=== PATIENT | female | born 1955 | race Caucasian/White ===

== ENCOUNTER 2018-07-25 17:34 | Outpatient (CLI) | payer OTHER | END 2018-07-25 17:35 | disposition EMS.NT | LOC: EMS 17:34 | PROVIDERS: ATTEND Surgery | DX: R55 Syncope and collapse (principal) ==

== ENCOUNTER 2019-02-01 15:53 | Outpatient (CLI) | payer MEDICARE | END 2019-02-01 15:54 | disposition short-term general hospital (02) | LOC: EMS 15:53 | PROVIDERS: ATTEND Surgery | DX: R25.2 Cramp and spasm (principal) | CPT/HCPCS: A0425; A0429 ==

== ENCOUNTER 2019-02-05 23:10 | Outpatient (CLI) | payer MEDICARE | END 2019-02-05 23:11 | disposition short-term general hospital (02) | LOC: EMS 23:10 | PROVIDERS: ATTEND Surgery | DX: R41.82 Altered mental status, unspecified (principal); R09.89 Other specified symptoms and signs involving the circulatory and respiratory systems | CPT/HCPCS: A0425; A0427 ==

== ENCOUNTER 2022-12-14 17:09 | Outpatient (CLI) | payer MEDICARE | END 2022-12-14 17:10 | disposition short-term general hospital (02) | LOC: EMS 17:09 | DX: R14.0 Abdominal distension (gaseous) (principal); K59.00 Constipation, unspecified; R53.1 Weakness | CPT/HCPCS: A0425; A0429 ==